=== PATIENT | female | born 1945 | race Caucasian/White ===

== ENCOUNTER → 2018-03-27 11:07 | Outpatient (CLI) | payer OTHER, SELFPAY ==
--- NOTE | 2018-03-27 | DI.RAD.S_ITS ---
PROCEDURE: XR CHEST 2V INDICATIONS: COUGH TECHNIQUE: 2 views of the chest were acquired. COMPARISON: [facility], , CHEST 2 VIEW, 07/22/2017, 10:56. FINDINGS: Surgical changes and devices: None. Lungs and pleura: No pleural effusions or pneumothorax. No acute consolidation. There is central airway thickening as before. Diffuse interstitial changes and scarring with grossly unchanged appearance. Mediastinum: Mediastinal contours are normal. Heart size is normal. Bones and chest wall: No suspicious bony abnormalities. Soft tissues appear unremarkable. IMPRESSION: No acute consolidation. Redemonstration of central airway thickening in keeping with nonspecific bronchitis versus reactive airways disease. Chronic diffuse interstitial disease/scarring. Dictated by: Silverio Lujan M.D. on 03/27/2018 at 12:21 Approved by: Silverio Lujan M.D. on 03/27/2018 at 12:23
== END ==
PROVIDERS: Family Provider Physician Assistant; PCP Physician Assistant; Visit Provider Physician Assistant
DX: J84.9 Interstitial pulmonary disease, unspecified (principal); J98.4 Other disorders of lung; R05 Cough
CPT/HCPCS: 71046

== ENCOUNTER 2018-08-25 18:55 | Emergency (ER) | payer OTHER, SELFPAY ==
[2018-08-25 19:07] VITALS: BP 138/86; PULSE 65; RESP 16; TEMP 36.6; O2SAT 95; BMI 22.3
--- NOTE | 2018-08-25 19:10 | ED.WOUNDLAC ---
HPI - Wound/Laceration <AMAIRANI Turner - Last Filed: 08/25/18 20:27> General Chief Complaint: Wound/Laceration Stated Complaint: cut on right hand Time Seen by Provider: 08/25/18 19:03 Source: patient and family Mode of arrival: ambulatory Limitations: no limitations History of Present Illness HPI narrative: The patient is a nonsmoker 73-year-old female who presents with a chief complaint of a laceration to the pointer finger of her right hand. She states she was gardening and cut her finger with garden lj. She does not know when her last tetanus was. She does not have suspicion of a foreign body. She states that she can bend her finger fully. She has not taken any Tylenol or ibuprofen. She has not cleaned it out. Related Data Allergies Allergy/AdvReac Type Severity Reaction Status Date / Time No Known Drug Allergies Allergy Verified 08/25/18 19:07 Review of Systems <AMAIRANI Turner - Last Filed: 08/25/18 20:27> Review of Systems GENERAL: Denies chills, fatigue, malaise, fever, sweats. HEENT: Denies sinus pain, ear pain, sore throat, difficulty swallowing, dizziness. RESPIRATORY: Denies dyspnea, cough, wheezing, hemoptysis, sputum. CARDIOVASCULAR: Denies chest pain, palpitations, orthopnea, edema, GASTROINTESTINAL: Denies nausea, vomiting, abdominal pain, diarrhea, constipation, melena. : Denies dysuria, frequency, incontinence, hematuria, urinary retention. MUSCULOSKELETAL: See HPI SKIN: See HPI NEUROLOGIC: Denies weakness, headache, numbness, change in speech, confusion, seizures, incoordination. PSYCHIATRIC: No concerning psychosocial issues. 12 point review of systems is negative except for those stated above PFSH <AMAIRANI Turner - Last Filed: 08/25/18 20:27> Surgical History (Updated 08/29/17 @ 04:59 by Conversion Provider) Status post colonoscopy Family History (Updated 08/02/15 @ 00:00 by Conversion Provider) Grandfather Cancer Grandmother Heart disease Social History Smoking Status: Never smoker Family History (Updated 08/02/15 @ 00:00 by Conversion Provider) Grandfather Cancer Grandmother Heart disease Social History Smoking Status: Never smoker Exam <AMAIRANI Turner - Last Filed: 08/25/18 20:27> Narrative Exam Narrative: GENERAL: This is a well-nourished, well-developed patient, no acute distress HEAD: Atraumatic. Normocephalic. No temporal or scalp tenderness. EYES: Pupils equal round and reactive. Extraocular motions intact. No scleral icterus. No injection or drainage. NECK: Trachea midline. No JVD or lymphadenopathy. Supple, nontender, no meningeal signs. CARDIOVASCULAR: Regular rate and rhythm RESPIRATORY: No cough. No increased respiratory effort. EXTREMITIES: Full range of motion right 2nd digit BACK: Nontender without deformity or crepitance. No flank tenderness. NEURO: AOx3. SKIN: 1.5 cm laceration around medial side of distal aspect of right 2nd digit. Linear, well-approximated, through the 0.5 cm of the nail Initial Vital Signs Initial Vital Signs: Vital Signs Temperature 97.8 F 08/25/18 19:07 Pulse Rate 65 08/25/18 19:07 Respiratory Rate 16 08/25/18 19:07 Blood Pressure 138/86 08/25/18 19:07 Pulse Oximetry 95 08/25/18 19:07 <Tramaine Colvin DO - Last Filed: 08/25/18 20:42> Initial Vital Signs Initial Vital Signs: Vital Signs Temperature 97.8 F 08/25/18 19:07 Pulse Rate 65 08/25/18 19:07 Respiratory Rate 16 08/25/18 19:07 Blood Pressure 138/86 08/25/18 19:07 Pulse Oximetry 95 08/25/18 19:07 Procedures <AMAIRANI Turner - Last Filed: 08/25/18 20:27> Laceration Repair Laceration 1: Site: hand (Right 2nd digit) Side (If applicable): right (1.5) Description: linear Depth: simple, single layer Pre-repair: wound explored and irrigated extensively (Soaked in Hibiclens and water) Skin layer closed with: steri-strips (2) Course <AMAIRANI Turner - Last Filed: 08/25/18 20:27> Orders Ordered: Discontinued Medications Diphtheria/Tetanus/Acell Pertussis (Adacel) 0.5 ml IM .ONCE ONE Stop: 08/25/18 19:12 Last Admin: 08/25/18 19:21 Dose: 0.5 ml Vital Signs - 8 hr 08/25/18 19:07 08/25/18 20:22 Temperature 97.8 F Pulse Rate 65 58 L Respiratory Rate 16 16 Blood Pressure 138/86 130/82 Pulse Oximetry 95 95 <Tramaine Colvin DO - Last Filed: 08/25/18 20:42> Orders Ordered: Discontinued Medications Diphtheria/Tetanus/Acell Pertussis (Adacel) 0.5 ml IM .ONCE ONE Stop: 08/25/18 19:12 Last Admin: 08/25/18 19:21 Dose: 0.5 ml Vital Signs - 8 hr 08/25/18 19:07 08/25/18 20:22 Temperature 97.8 F Pulse Rate 65 58 L Respiratory Rate 16 16 Blood Pressure 138/86 130/82 Pulse Oximetry 95 95 MDM - Wound/Laceration <MELINA TurnerBC - Last Filed: 08/25/18 20:27> MDM Narrative Medical decision making narrative: The patient is a 73-year-old female who presents with a chief complaint of laceration. Her tetanus was updated. She declined an x-ray. Laceration was thoroughly cleansed with sterile water and Hibiclens. Closed with Steri-Strips. Patient has full range of motion against resistance. Discussed at length monitoring for signs and symptoms of infection such as redness pus or acute concerns. Discussed keeping wound clean and not putting in dirty water. Patient and state understanding and have no questions at discharge. Discharge Plan Departure Patient Disposition: Home Clinical Impression: Laceration Discharge Date/Time: 08/25/18 20:23 Interventions: ED Discharge Assessment Last Done: 08/25/18 20:22 Instructions: How to Care for a Laceration After Repair, DI for Laceration Repair Steri-Strips, DI for Minor Laceration Activity Restrictions/Additional Instructions: Please monitor your laceration for signs and symptoms of infection such as redness pus and fever as well as decreased range of motion. Please follow-up if any of these occur. Please keep you could clean and dry and do not submerge it dirty water such as dishwater like water pool water cetera. This can increase her chance of infection. Please apply ice as needed and take [id number] pain medications as needed and able. Referrals: Nely England PA-C [Primary Care Provider] - <Tramaine Colvin, - Last Filed: 08/25/18 20:42> Cosign ED Attending Cindy Attestation: I was available for consultation during this patient's emergency department encounter
[2018-08-25] MEDS: TET,DIPH,PERTUSS(ACELL),VAC/PF 0.5 ML SYRINGE IM (19:21)
--- NOTE | 2018-08-25 20:19 | PC.NURSE ---
Finger dressing with splint applied to injured finger. Pt tolerated well.
[2018-08-25 20:22] VITALS: BP 130/82; PULSE 58; RESP 16; O2SAT 95
== END 2018-08-25 20:23 | disposition home or self-care (01) ==
PROVIDERS: Emergency Provider Nurse Practitioner Family; PCP Physician Assistant
DX: S61.210A Laceration without foreign body of right index finger without damage to nail, initial encounter (principal); W27.1XXA Contact with garden tool, initial encounter; Y93.H2 Activity, gardening and landscaping; Z23 Encounter for immunization
CPT/HCPCS: 90471; 99283; 90715

== ENCOUNTER → 2019-01-23 14:18 | Outpatient (ROUT) | payer OTHER, SELFPAY ==
[2019-01-23 14:45] LABS: Add Manual Diff / Slide Review NO; Basophils Absolute Auto 0 /uL (0-100); Basophils Percent Auto 1.1 % (0-2); Eosinophils Absolute Auto 100 /uL (0-450); Hemoglobin 13.4 g/dL (12.0-16.0); Lymphocytes Absolute Auto 1300 /uL (1100-4500); Lymphocytes Percent Auto 30.5 % (25-40); Mean Corpuscular HGB Conc 33.4 % (30-36); Mean Corpuscular Volume 89.7 fL (80-100); Monocytes Absolute Auto 600 /uL (0-900); Monocytes Percent Auto 13.3 % (3-14); Neutrophils Absolute Auto 2200 /uL (1500-7000); Neutrophils Percent Auto 52.1 % (50-75); Platelet Count 197 X10^3/uL (150-400); Red Blood Cell Count 4.46 X10^6/uL (4.0-5.2); Red Cell Distribution Width 14.3 % (11.6-14.8); White Blood Cell Count 4.2 X10^3/uL (4.5-11.0)
[2019-01-23 14:50] LABS: Alanine Aminotransferase 11 IU/L (9-52); Albumin 4.1 g/dL (3.5-5.0); Albumin Globulin Ratio 1.3 (1.0-2.8); Alkaline Phosphatase 110 U/L (38-126); Aspartate Aminotransferase 24 IU/L (14-36); Bilirubin Total 0.8 mg/dL (0.2-1.3); Blood Urea Nitrogen 14 mg/dL (7-17); Calcium 9.4 mg/dL (8.4-10.2); Carbon Dioxide 27 mmol/L (22-32); Chloride 104 mmol/L (98-107); Cholesterol 191 mg/dL (140-199); Estimated Glomerular Filt Rate > 60.0 mL/min (>60); Globulin 3.1 g/dL (1.7-4.1); Glucose 88 mg/dL (80-110); HDL Cholesterol 64 mg/dL (40-60); HEMOLYSIS < 15 (0-50); LDL Cholesterol Calculated 107 mg/dL (<100); Sodium 142 mmol/L (137-145); Total Protein 7.2 g/dL (6.3-8.2); Triglycerides 102 mg/dL (35-150)
== END ==
PROVIDERS: PCP Physician Assistant; Visit Provider Student in an Organized Health Care Education/Training Program
DX: E78.00 Pure hypercholesterolemia, unspecified (principal)
CPT/HCPCS: 80053; 80061; 85025

== ENCOUNTER → 2019-01-24 13:03 | Outpatient (CLI) | payer OTHER, SELFPAY | PROVIDERS: PCP Physician Assistant; Visit Provider Student in an Organized Health Care Education/Training Program | DX: Z13.820 Encounter for screening for osteoporosis (principal); M81.0 Age-related osteoporosis without current pathological fracture; Z78.0 Asymptomatic menopausal state | CPT/HCPCS: 77080 ==

== ENCOUNTER → 2020-05-18 10:48 | Outpatient (CLI) | payer OTHER, SELFPAY ==
--- NOTE | 2020-05-18 | DI.RAD.S_ITS ---
PROCEDURE: XR CHEST 2V INDICATIONS: COUGH TECHNIQUE: 2 views of the chest were acquired. COMPARISON: [facility], , XR CHEST 2V, 03/27/2018, 11:15. [facility], , CHEST 2 VIEW, 07/22/2017, 10:56. FINDINGS: Surgical changes and devices: None. Lungs and pleura: Lungs are clear. No pleural effusions or pneumothorax. Interstitial prominence is unchanged compared to the prior study and is likely chronic. Mediastinum: Mediastinal contours are normal. Heart size is normal. Bones and chest wall: No suspicious bony abnormalities. Soft tissues appear unremarkable. IMPRESSION: No acute cardiopulmonary abnormality. Dictated by: Devan Frias M.D. on 05/18/2020 at 11:36 Approved by: Devan Frias M.D. on 05/18/2020 at 11:37
== END ==
PROVIDERS: PCP Physician Assistant; Referring Provider Student in an Organized Health Care Education/Training Program; Visit Provider Student in an Organized Health Care Education/Training Program
DX: R05 Cough (principal)
CPT/HCPCS: 71046

== ENCOUNTER → 2022-05-12 10:45 | Outpatient (CLI) | payer OTHER, SELFPAY ==
--- NOTE | 2022-05-12 10:47 | DI.RAD.S_ITS ---
PROCEDURE: XR DEXA AXIAL SKELETON INDICATIONS: Age-related osteoporosis COMPARISON: [facility], CR, XR DEXA AXIAL SKELETON, 01/24/2019, 13:43. FINDINGS: This blank DEXA report has been sent in error by the PACS system. The correct and complete report will be forthcoming in 1-2 days. Thank you for your patience and understanding. Dictated by: Dragan Oneill M.D. on 05/12/2022 at 12:04 Approved by: Dragan Oneill M.D. on 07/21/2022 at 13:45
== END ==
PROVIDERS: PCP Student in an Organized Health Care Education/Training Program; Referring Provider Student in an Organized Health Care Education/Training Program; Visit Provider Student in an Organized Health Care Education/Training Program
DX: M81.0 Age-related osteoporosis without current pathological fracture (principal); K63.9 Disease of intestine, unspecified; Z79.83 Long term (current) use of bisphosphonates
CPT/HCPCS: 77080

== ENCOUNTER → 2025-02-24 15:25 | Outpatient (CLI) | payer MEDICARE, SELFPAY ==
--- NOTE | 2025-02-24 15:31 | DI.RAD.S_ITS ---
PROCEDURE: XR FOOT RT MIN 3V INDICATIONS: FALL TECHNIQUE: 3 views of the foot were acquired. COMPARISON: None. FINDINGS: Bones: No fractures or dislocations. No suspicious bony lesions. Mild degenerative disease in the 1st MTP joint. Mild to moderate osteopenia. Soft tissues: No tibiotalar joint effusion. Achilles tendon appears normal. IMPRESSION: No acute bony abnormality. Dictated by: Brooks Alcantara M.D. on 02/24/2025 at 16:25 Approved by: Brooks Alcantara M.D. on 02/24/2025 at 16:26
--- NOTE | 2025-02-24 15:31 | DI.RAD.S_ITS ---
PROCEDURE: XR HIP W PEL IF DONE LT 2V INDICATIONS: FALL TECHNIQUE: 2 views of the hip were acquired. COMPARISON: None. FINDINGS: Bones: No fractures or dislocations. No suspicious bony lesions. The visualized pelvic ring appears intact. Soft tissues: No suspicious soft tissue calcifications or masses. IMPRESSION: No acute bony abnormality. Dictated by: Brooks Alcantara M.D. on 02/24/2025 at 16:23 Approved by: Brooks Alcantara M.D. on 02/24/2025 at 16:24
--- NOTE | 2025-02-24 15:31 | DI.RAD.S_ITS ---
PROCEDURE: XR ANKLE RT MIN 3V INDICATIONS: FALL TECHNIQUE: 3 views of the ankle were acquired. COMPARISON: None. FINDINGS: Bones: No fractures or dislocations. Ankle mortise is normally aligned. No suspicious bony lesions. Soft tissues: No tibiotalar joint effusion. Achilles tendon appears normal. IMPRESSION: No acute bony abnormality or significant effusion. Dictated by: Brooks Alcantara M.D. on 02/24/2025 at 16:24 Approved by: Brooks Alcantara M.D. on 02/24/2025 at 16:25
== END ==
PROVIDERS: PCP Physician Assistant; Referring Provider Family Medicine; Visit Provider Family Medicine
DX: S70.02XA Contusion of left hip, initial encounter (principal); S93.401A Sprain of unspecified ligament of right ankle, initial encounter; W19.XXXA Unspecified fall, initial encounter
CPT/HCPCS: 73502; 73610; 73630